=== PATIENT | female | born 1985 | race Caucasian/White ===

== ENCOUNTER → 2020-01-16 07:26 | Outpatient (CLI) | payer OTHER, SELFPAY ==
[2020-01-02 19:45] VITALS: BMI 26.4
--- NOTE | 2020-01-16 07:35 | VDLE_ITS ---
Reason For Study: EDEMA Procedure LEFT Exam performed in department. CFV is compressible, spontaneous, phasic, A preliminary report was called and/or faxed competent, and demonstrates normal to [facility]. augmentation. FV is compressible, spontaneous, phasic, competent and demonstrates normal augmentation. POP V is compressible, spontaneous, phasic, competent and demonstrates normal augmentation. T/P Trunk is compressible. PTV is compressible. LT PerV is compressible. SFJ is INCOMPETENT and measures 1.4 X 1.8 cm. GSV INCOMPETENT throughout for greater than 0.5 seconds. GSV at knee measures .6 X .6 cm. GSV proximal thigh measures .7 X .9 cm. SSV at junction is competent and measures .2 X .3 cm. Interpretation Summary No DVt left leg. GSV 14mm, 9mm and 6mm with reflux throughout. Ordering Physician: Gale Townsend Referring Physician: SANTINO TREADWELL Performed By: Huma Knox, SAMPSON, RVT
--- NOTE | 2020-01-16 07:35 | ART_ITS ---
Reason For Study: PVD Procedure A bilateral lower extremity continuous wave Doppler with analog waveform analysis,segmental pressures,and ankle brachial indexes without exercise. Left Segmental Pressures Left brachial= 119mmHg. Left posterior tibial artery = 148mmHg. Left dorsalis pedis artery = 139mmHg. Left digit = 88 mmHg. The left dorsalis pedis waveforms are triphasic. The left posterior tibial artery waveforms are triphasic. Right Segmental Pressures Right brachial= 114mmHg. Right posterior tibial artery = 153mmHg. Right dorsalis pedis artery = 151mmHg. Right digit = 79 mmHg. The right dorsalis pedis waveforms are triphasic. The right posterior tibial artery waveforms are triphasic. Indices The right ankle brachial index by the dorsalis pedis is 1.27. The right ankle brachial index by the posterior tibial artery is 1.29. The right digital-brachial index is .66. The left ankle brachial index by the posterior tibial artery is 1.24. The left ankle brachial index by the dorsalis pedis is 1.39. The left digital-brachial index is .74. Interpretation Summary No occlussive disease at rest with triphasic flow and GRACIE 1.29 and 1.24. Ordering Physician: Gale Townsend Referring Physician: Gale Townsend Performed By: Huma Knox, HALLIECS, RVT
== END ==
PROVIDERS: PCP Family Medicine; Referring Provider Nurse Practitioner; Visit Provider Nurse Practitioner
DX: I73.9 Peripheral vascular disease, unspecified (principal); R60.0 Localized edema
CPT/HCPCS: 93923; 93971

== ENCOUNTER 2023-08-06 21:22 | Emergency (ER) | payer BC, SELFPAY ==
[2023-08-06 21:23] VITALS: BP 137/81; PULSE 56; RESP 15; TEMP 36.3; O2SAT 98; BMI 27.6
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
--- OUTSIDE RECORDS SUMMARY | 2023-08-06 21:48 | XMS RPT_ITS | CCD ---
Author Name Unknown Address [address] [place] [address] Organization [facility] Results Test Name Value Interpretation Reference Range Facil ity Progress note 08-21-2020 Note Date & Type Note Facility 08-21-2020 Note HNO ID: [id number] Author: Jody Perkins Service: ? Author Type: Nurse Practitioner Type: Progress Notes Filed: 08/21/2020 3:46 PM Note Text: Scarlett Gooden presents today for IUD check. She had a Mirena placed on 08/04/18. Has monthly 5 day light menses. This menses had 5 days of light flow and has continued with daily spotting for another week. REVIEW OF SYSTEMS: No pain, fever or chills. PHYSICAL EXAMINATION: BP 110/62 Wt 143 lb (64.9kg) LMP 08/08/2020 ABDOMEN:soft and non-tender EXTERNAL GENITALIA: Normal genitalia and Bartholins, Urethra, Sken'e normal CERVIX: smooth, no lesions and brown tinged mucous. IUD strings visible. UTERUS: normal size ADNEXA: negative for tenderness or masses ASSESSMENT/PLAN: 1. Breakthrough bleeding with IUD - ICD9: 626.6, V45.51, ICD10: N92.1, Z97.5 (primary diagnosis) - IUD in proper placement - Reassured 2. Vaginal discharge - ICD9: 623.5, ICD10: N89.8 - BACT/YESICA VAG GRAM STAIN 3. Surveillance of previously prescribed intrauterine contraceptive device - ICD9: V25.42, ICD10: Z30.431 - IUD in proper placement Will notify of results. Follow- up as needed. Jody Perkins APRN.CHELSI Medical Decision Making: Problems: Low: 2+ self-limited or minor problems Data: Unique test(s) ordered: 1 Risk: Low: Low risk from testing/treatment Medical Decision Making Level: 3 - Low [facility] Summary Purpose Family History No Family History Records FoundNo Family History Records Found Advance Directives No Advanced Directives Records FoundNo Advanced Directives Records Found Additional Source Comments INFORMATION SOURCE (unrecogn ized section and content) DATE CREATED AUTHOR AUTHOR'S MICHELLE LANDIS 08/16/2021 [facility] FOR RECORDS PERTAINING TO PATIENTS WHO ARE OR HAVE BEEN ENROLLED IN A CHEMICAL DEPENDENCY/SUBSTANCEABUSE PROGRAM, SOME INFORMATION MAY BE OMITTED. This clinical summary was aggregated from multiple sources. Caution should be exercised in using it in the provision of clinical care. This summary normalizes information from multiple sources, and as a consequence, information in this document may materially change the coding, format and clinical context of patient data. In addition, data may be omitted in some cases. CLINICAL DECISIONS SHOULD BE BASED ON THE PRIMARY CLINICAL RECORDS. [facility] [employer] [facility]. provides no warranty or guarantee of the accuracy or completeness of information in this document.
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
[2023-08-06] MEDS: Morphine 4 MG/ML Syringe IV (22:08)
[2023-08-06] MEDS: Ondansetron 4 MG/2 ML Vial IV (22:09)
[2023-08-06] MEDS: 0.9% Normal Saline (1000mL) 1,000 ML 1000 ML IV (22:09)
[2023-08-06 22:23] LABS: Bacteria 0 SEEN /hpf (None Seen); Mucous, Urine 0 SEEN /hpf (<or=2+); Red Blood Cells-Urine 0 SEEN /hpf (0-5); Squamous Epithelial Cells - UA 0 SEEN /hpf (5-10); White Blood Cells 0 SEEN /hpf (0-5)
[2023-08-06 22:27] LABS: Color, Urine Yellow (Yellow); Glucose, Dipstick Normal (Normal); Ketone-Dipstick Negative (Negative); Leukocyte Esterase-Dipstick Negative /ul (Negative); Nitrite-Dipstick Negative (Negative); Occult Blood-Urine Negative /ul (Negative); Protein-Dipstick Negative (Negative); Specific Gravity, Urine 1.005 (1.002-1.030); Urine Bilirubin Dipstick Negative (Negative); Urine Clarity Clear (Clear); Urine Urobilinogen Normal (Normal)
[2023-08-06 22:29] LABS: Absolute Lymphocyte Count 2.09 X10^3/uL (0.83-4.51); Absolute Neutrophil Count 2.3 X10^3/uL (2.0-7.7); Basophil# 0.06 X10^3/uL; Basophil% 1.1 % (0-1); Eosinophil# 0.26 X10^3/uL; Eosinophils% 4.9 % (0-5); Hematocrit 36.2 % (37-47); Hemoglobin 12.5 g/dL (12.0-15.0); Lymphocyte # 2.09 X10^3/ul (0.83-4.51); Lymphocyte % 39.4 % (19-41); Mean Corp Hgb Conc 34.5 g/dL (32-36); Mean Corpuscular Hgb 30.7 pg (27.0-32.0); Mean Corpuscular Volume 88.9 fL (81-99); Mean Platelet Vol. 10.6 fl (6.2-12.0); Monocyte% 11.3 % (0-10); NRBC Flagged by Analyzer 0 % (0-5); Neutrophil # 2.29 X10^3/uL (2.7-7.7); Neutrophil % 43.1 % (47-70); Platelet Count 223 K/mm3 (150-450); RBC Distribution Width CV 12.1 % (11.6-14.6); RBC Distribution Width SD 39.3 fl (35.1-43.9); Red Blood Count 4.07 M/mm3 (4.2-5.4); White Blood Count 5.3 K/mm3 (4.4-11.0)
[2023-08-06 22:43] LABS: ALB/GLOB Ratio 1.1 RATIO (0.9-2.4); AST(SGOT) 15 U/L (15-37); Alanine Aminotransfer ALT/SGPT 16 U/L (13-56); Albumin, Serum 3.5 g/dL (3.2-5.0); Alkaline Phosphatase 46 U/L (45-117); Anion Gap 5 (5-15); BUN 17 mg/dL (7-18); BUN/Creat Ratio 17.4 RATIO (10-20); Calcium,Total 8.7 mg/dL (8.5-10.1); Chloride 109 mmol/L (98-107); Creatinine, Serum 0.98 mg/dL (0.55-1.02); EST Glomerular Filtration Rate 67 mL/min (>60); Est Glom Filt Rate - Afr Amer 81 mL/min (>60); Estimated Creatinine Clearance 66.46 ml/min; Globulin 3.1 g/dL (2.2-4.2); Glucose 94 mg/dL (74-106); Lipase 73 U/L (13-75); Potassium 3.9 mmol/L (3.5-5.1); Protein, Total 6.6 g/dL (6.4-8.2); Sodium Level 141 mmol/L (136-145)
[2023-08-06 23:05] LABS: Internal QC Validated? YES +Cl - CLEAR BKGD; Pregnancy, Serum, hCG Quali. NEGATIVE Negative
[2023-08-06 23:55] VITALS: RESP 16
== END 2023-08-06 23:58 | disposition home or self-care (01) ==
PROVIDERS: Emergency Provider Emergency Medicine; Visit Provider Emergency Medicine
DX: S30.1XXA Contusion of abdominal wall, initial encounter (principal); Z87.891 Personal history of nicotine dependence; V49.40XA Driver injured in collision with unspecified motor vehicles in traffic accident, initial encounter
CPT/HCPCS: 70450; 74177; 80053; 81001; 83690; 84703; 85025; 96361; 96374; 96375; 99283; J7030; Q9967; A4216; J2405

== ENCOUNTER → 2024-12-06 | Outpatient (CLI) | payer OTHER, SELFPAY ==
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
== END | disposition home or self-care (01) ==
LOC: MTRAD 15:18
PROVIDERS: Referring Provider Physician Assistant Surgical; Visit Provider Physician Assistant Surgical
DX: S86.911A Strain of unspecified muscle(s) and tendon(s) at lower leg level, right leg, initial encounter (principal)
CPT/HCPCS: 73590